=== PATIENT | male | born 1985 | race Caucasian/White ===

== ENCOUNTER 2016-08-03 11:14 | Emergency (ER) | payer OTHER ==
[2016-08-03] MEDS ORDERED: HYDROmorphone 1 MG/ML 1 ML SYRINGE IM STA (12:00)
--- NOTE | 2016-08-03 12:41 | XR ---
EXAMINATION TYPE: XR chest 1V DATE OF EXAM: 08/03/2016 COMPARISON: NONE HISTORY: Shortness of breath, trauma TECHNIQUE: Single frontal view of the chest is obtained. FINDINGS: There is no focal air space opacity, pleural effusion, or pneumothorax seen. The cardiac silhouette size is within normal limits. The osseous structures are remarkable for left scapular fr acture. Suspect there is been previous right clavicular resection distally. IMPRESSION: No acute process.
--- NOTE | 2016-08-03 12:44 | XR ---
Left shoulder HISTORY: Trauma and pain 3 views of the left shoulder There is a slightly displaced left scapular fracture present. Slight superior displacement of the dis jory clavicle relation to the acromion on one of the views. No evident pneumothorax. IMPRESSION: Left scapular fracture, correlate for possible acromial clavicular separation.
[2016-08-03] MEDS ORDERED: RX INFO: IV CONTRAST WAS GIVEN 1 EACH MISC MISCELLANE PRN (13:22)
[2016-08-03] MEDS ORDERED: DIPH,PERTUS(ACELL)TETVAC-LF 0.5 ML VIAL IM ONE (13:25)
--- NOTE | 2016-08-03 13:28 | ED ---
Trauma HPI - General Chief Complaint: Extremity Injury, Upper Stated Complaint: left arm injury - [facility] Time Seen by Provider: 08/03/16 11:51 Source: patient, RN notes reviewed Mode of arrival: ambulatory Limitations: no limitations - History of Present Illness Initial Comments: 30-year-old male presents emergency Department chief complaint left shoulder injury. Patient states that he was cutting down a tree in which a branch came down and struck his left shoulder. Patient states that he did not strike his head though did not cough is hard had. Patient states he landed directly on his left shoulder. He was knocked down to the ground. He does not believe he lost consciousness. Patient denies any headache, neck pain, blurred vision, nausea vomiting. Patient does complain of abrasion, severe pain to his left shoulder. Patient states he has pain radiates down into his hand but states that he has no tenderness through his forearm region. He denies any back pain, lower extremity injuries. Patient has no confusion. - Related Data Home Medications Medication Instructions Recorded Confirmed Multivitamins, Thera [Multivitamin 1 tab PO DAILY 08/03/16 08/03/16 (formulary)] Previous Rx's Medication Instructions Recorded HYDROcodone/APAP 7.5-325MG [Mutual 1 tab PO Q6HR PRN #20 tab 08/03/16 7.5-325] Allergies Allergy/AdvReac Type Severity Reaction Status Date / Time No Known Allergies Allergy Verified 08/03/16 12:11 Review of Systems ROS Statement: Those systems with pertinent positive or pertinent negative responses have been documented in the HPI. ROS Other: All systems not noted in ROS Statement are negative. Past Medical History Past Medical History: No Reported History History of Any Multi-Drug Resistant Organisms: None Reported Past Surgical History: No Surgical Hx Reported Past Psychological History: No Psychological Hx Reported Smoking Status: Former smoker Past Alcohol Use History: None Reported Past Drug Use History: None Reported General Exam Limitations: no limitations General appearance: alert, in no apparent distress Head exam: Present: atraumatic, normocephalic, normal inspection Eye exam: Present: normal appearance, PERRL, EOMI. Absent: scleral icterus, conjunctival injection, periorbital swelling ENT exam: Present: normal exam, normal oropharynx, mucous membranes moist, TM's normal bilaterally, normal external ear exam Neck exam: Present: normal inspection, full ROM. Absent: tenderness, meningismus, lymphadenopathy Respiratory exam: Present: normal lung sounds bilaterally. Absent: respiratory distress, wheezes, rales, rhonchi, stridor, chest wall tenderness Cardiovascular Exam: Present: regular rate, normal rhythm, normal heart sounds. Absent: systolic murmur, diastolic murmur, rubs, gallop, clicks GI/Abdominal exam: Present: soft, normal bowel sounds. Absent: distended, tenderness, guarding, rebound, rigid Extremities exam: Present: other (There are 2 large superficial lacerations/ abrasions noted to the left shoulder region patient has severe tenderness along the scapula and posterior lateral aspect of the shoulder neurovascular intact upper extremities with radial pulses equal bilaterally +2 patient is no tenderness the distal humerus and no tenderness to the forearm on the left) Back exam: Present: full ROM. Absent: tenderness Skin exam: Present: warm, dry, intact, normal color. Absent: rash Course Vital Signs 08/03/16 08/03/16 11:16 13:36 Temperature 97 F L Pulse Rate 73 71 Respiratory 18 18 Rate Blood Pressure 154/93 146/91 O2 Sat by Pulse 100 95 Oximetry Medical Decision Making - Medical Decision Making 30-year-old male present emergency from for left shoulder injury. Patient has a left scapular fracture. I did discuss case with [facility] associate. They recommend him to be placed in a sling with close follow-up, pain control. They state that he does not need further treatment at this time that he does not extend within the glenohumeral joint. Patient's CT does not show an acute abnormality's other than left scapular fracture. She had no head injury and no other injuries noted. Disposition Clinical Impression: Left scapula fracture Disposition: HOME SELF-CARE Condition: Stable Instructions: Scapular Fracture (ED) Additional Instructions: Please return to the Emergency Department if symptoms worsen or any other concerns. Prescriptions: HYDROcodone/APAP 7.5-325MG [Mutual 7.5-325] 1 tab PO Q6HR PRN #20 tab PRN Reason: Pain Referrals: None,Stated [Primary Care Provider] - 1-2 days Gabriele Carter MD [STAFF PHYSICIAN] - 1-2 days Time of Disposition: 14:57
--- NOTE | 2016-08-03 14:44 | CT ---
EXAMINATION TYPE: CT chest w con DATE OF EXAM: 08/03/2016 COMPARISON: NONE HISTORY: Left arm injury CT DLP: 549.2 mGycm Automated exposure control for dose reduction was used. CONTRAST: CT scan of the chest is performed with IV Contrast, patient injected with 100 mL of Omnipaque 300. FINDINGS: There is a mildly displaced, comminuted fracture of the left scapula. Definite rib fracture s are not identified. The glenohumeral joint appears unremarkable. No clavicular fracture is seen. There are atelectatic changes present at the lung bases. There is no evidence of pneumothorax. There is no evidence of lung contusion. There is no significant axillary, mediastinal or hilar adenopathy. There is no pleural or pericardial fluid. The heart is not enlarged. Visualized portions of the upper abdomen are unremarkable. No spinal fracture is seen. IMPRESSION: COMMINUTED, MILDLY DISPLACED FRACTURE OF THE LEFT SCAPULA. CODE A: INITIAL ENCOUNTER FOR CLOSED FRACTURE TYPE I OR II
[2016-08-03 15:17] VITALS: BP 169/67; PULSE 57; RESP 17; TEMP 97.5
--- NOTE | 2016-08-05 10:57 | XR ---
EXAMINATION TYPE: XR scapula LT DATE OF EXAM: 08/03/2016 COMPARISON: NONE HISTORY: Pain TECHNIQUE: Single view of the scapula is submitted FINDINGS: There is displaced scapular fracture noted involving the scapular body. IMPRESSION: Scapular fracture seen.
== END 2016-08-03 15:16 | disposition home or self-care (01) ==
LOC: EC 11:14
DX: S42.112A Displaced fracture of body of scapula, left shoulder, initial encounter for closed fracture (principal); Z23 Encounter for immunization; Z87.891 Personal history of nicotine dependence; Z79.899 Other long term (current) drug therapy; W20.8XXA Other cause of strike by thrown, projected or falling object, initial encounter; Y93.89 Activity, other specified
CPT/HCPCS: 99284; 96372; 90471; 71010; 73030; 73010; 71260; 90715; J1170; Q9967